=== PATIENT | male | born 1965 | race Caucasian/White ===

== ENCOUNTER → 2020-03-28 | Outpatient (CLI) | payer BC ==
[2020-03-28 10:54] LABS: African American GFR (CKD) >90 (>60 ml/min/1.73 sqM); Blood Urea Nitrogen 12 mg/dL (9-20); Non-African American GFR(CKD) >90 (>60 ml/min/1.73 sqM)
--- NOTE | 2020-03-28 12:42 | CT ---
EXAMINATION TYPE: CT abdomen wo/w con DATE OF EXAM: 03/28/2020 COMPARISON: None HISTORY: Benign neoplasm of unspecified adrenal gland CT DLP: 1725 mGycm CONTRAST: CT scan of the abdomen is performed with Oral Contrast and without and with IV Contrast, patient inje cted with 100 ml mL of Isovue 300. FINDINGS: LUNG BASES-: No visible nodule. No infiltrate. LIVER/GB: No calcified gallstones. No space occupying hepatic lesion. Biliary tree is of normal ca liber. PANCREAS: No inflammation. No distinct mass. SPLEEN: No splenic enlargement. No lesion seen. ADRENALS: There is a 4.5 centimeter mass arising from the right adrenal gland with Hounsfield unit on the precontrast portion of the study of -5 Hounsfield units and following contrast -1 Hounsfield uni t. Findings indicate lipid rich adenoma. There is a small nodule noted of the left adrenal gland yamilet uring 1.4 cm which has a similar appearance and is also compatible with lipid rich adenoma. KIDNEYS/BLADDER: No hydronephrosis. 3 mm nonobstructing calculus lower pole right kidney. No distinc t renal mass. Urinary bladder grossly unremarkable. BOWEL: Normal appendix. Normal bowel caliber. No inflammation. LYMPH NODES: No greater than 1cm abdominal or pelvic lymph nodes are appreciated. AORTA: No significant abnormality. OSSEOUS STRUCTURES: No significant abnormality is seen. OTHER: No significant additional abnormality is seen. IMPRESSION: 1. Lipid rich adrenal adenomas noted.
== END | disposition home or self-care (01) ==
LOC: RADCTMAIN 10:11
PROVIDERS: ATTEND Urology
DX: D35.00 Benign neoplasm of unspecified adrenal gland (principal); Z88.0 Allergy status to penicillin
CPT/HCPCS: 82565; 84520; 74170; 36415; Q9967

== ENCOUNTER → 2021-06-12 | Outpatient (CLI) | payer BC ==
--- NOTE | 2021-06-12 10:43 | CT ---
EXAMINATION TYPE: CT adrenal glands wo/w con DATE OF EXAM: 06/12/2021 COMPARISON: CT abdomen March 28, 2020 HISTORY: adrenal adenoma CT DLP: 1804.8 mGycm, Automated Exposure Control for Dose Reduction was Utilized. CONTRAST: CT scan of the abdomen is performed with oral and without and with IV Contrast, patient injected with 100 mL of Isovue 300. Adrenal gland protocol. FINDINGS: LUNG BASES: No significant abnormality is appreciated. LIVER/GB: No significant abnormality is appreciated. PANCREAS: No significant abnormality is seen. SPLEEN: No significant abnormality is seen. ADRENALS: Left adrenal gland shows stable in size central 1.9 x 1.8 cm mass near the crux. The Hounsf ield units on the left average -1 on noncontrast images with enhancement to 30 Hounsfield units on 1 minute postcontrast images and washout to 1 Hounsfield unit on 15 minute delayed images consistent wi th benign lipid rich adenoma. There is stable in size anterior 4.2 x 3.6 cm right adrenal mass axial image 22 series 3. Hounsfield units on the right average -1 on noncontrast images with enhancement up to 42 on [address] images and washout to 13 Hounsfield units on 15 minute delayed images. Imaging characteristics con sistent with benign lipid rich adenoma. KIDNEYS: Stable 3 mm nonobstructing calculus lower pole right kidney axial image 44. New 3 mm nonobst ructing calculus lower pole left kidney coronal image 64. There is symmetric cortical medullary uptak e and excretion without concerning solid or cystic mass or hydronephrosis seen bilaterally. BOWEL: Oral contrast does not reach colonic level making evaluation of distal bowel slightly suboptim al. No suspicious small or large bowel dilatation. More central positioning of the left colon is rede monstrated. Left lateral mid to lower abdominal small bowel loops show less than ideal opacification with fold thickening similar to prior study. Correlate clinically for possible bowel affecting syndro me such as celiac disease. LYMPH NODES: No new Greater than 1 cm abdominal lymph nodes are appreciated. OSSEOUS STRUCTURES: Multilevel spurring in the thoracolumbar spine redemonstrated. OTHER: Moderate mixed peripheral plaque in the infrarenal abdominal aorta again seen. IMPRESSION: Stable bilateral adrenal masses larger on the right consistent with benign lipid rich mee nomas on dynamic imaging
== END | disposition home or self-care (01) ==
LOC: RADCTMAIN 07:49
PROVIDERS: ATTEND Urology
DX: D44.11 Neoplasm of uncertain behavior of right adrenal gland (principal)
CPT/HCPCS: 74170; Q9967